=== PATIENT | female | born 1995 | race Caucasian/White ===

== ENCOUNTER 2022-09-16 14:43 | Outpatient (REF) | payer OTHER, SELFPAY ==
--- NOTE | ~2022-09-16 | US_ITS ---
EXAMINATION: US SOFT TISSUE HEAD/NECK CLINICAL INFORMATION: Lymphadenopathy. Patient states history of enlarged right zone II lymph node. COMPARISON: None available. TECHNIQUE: Linear transducer grayscale and color Doppler examination of the right neck with left neck for comparison. FINDINGS: Targeted ultrasound images were obtained by the doughnut icer of the area of concern as indicated by the patient in the right neck at level 2. Radiologist was not in attendance. Images were later provided for interpretation. Right level 2 lymph atypical node measures 1.1 cm transverse, 0.7 cm AP, 0.9 cm sagittal with an echogenic hilum. Right level 2 atypical node measures 1.5 cm transverse, 0.8 cm AP and 1.7 cm sagittal with cortical thickening and echogenic hilum. Right level 3 node measures 0.8 cm transverse, 0.5 cm AP, 1.9 cm sagittal and demonstrates an echogenic hilum. Left level 2 atypical node measures 1.5 cm transverse, 0.7 cm AP, 1.6 cm transverse with minimally visualized echogenic hilum. US/US soft tiss head and/or neck IMPRESSION: Multiple lymph nodes, some of which are atypical, as detailed above. Decisions regarding further imaging, treatment or biopsy should be based on the clinical exam. Recommend follow up ultrasound in 3 months.
== END 2022-09-16 14:44 | disposition home or self-care (01) ==
LOC: HO.US 14:43
PROVIDERS: Visit Provider Internal Medicine
DX: R59.0 Localized enlarged lymph nodes (principal)
CPT/HCPCS: 76536

== ENCOUNTER 2022-12-08 13:19 | Outpatient (REF) | payer OTHER, SELFPAY ==
--- NOTE | ~2022-12-08 | US_ITS ---
Ultrasound guided biopsy of the enlarged lymph node in the right side of the neck at level II measuring 1.8 x 0.9 x 1.4 cm INDICATIONS: Cervical lymphadenopathy After informed and written consent was obtained an official timeout was performed immediately prior to the procedure. PROCEDURE: The skin was prepped and draped in the usual fashion. 1% Xylocaine was used for local anesthetic. Under ultrasound guidance 4 needle aspirates were obtained utilizing a 25-gauge needle. One specimen was sent in flow cytometry. US/US guided fine needle asp IMPRESSION: Ultrasound-guided biopsy of the enlarged lymph node in the right side of the neck
[2022-12-08] MEDS: Lidocaine HCl 1 % MPF 5 ML VIAL SUBCUT (14:11)
== END 2022-12-08 13:20 | disposition home or self-care (01) ==
LOC: HO.US 13:19
PROVIDERS: Radiology Vascular & Interventional Radiology; Visit Provider Internal Medicine
DX: L04.0 Acute lymphadenitis of face, head and neck (principal)
CPT/HCPCS: 10005; 36415; 88172; 88173; 88177; 88184; 88185

== ENCOUNTER → 2022-12-08 13:24 | Outpatient (BNV) | payer OTHER, SELFPAY | PROVIDERS: Visit Provider Radiology Vascular & Interventional Radiology | DX: E04.1 Nontoxic single thyroid nodule (principal) | CPT/HCPCS: 10005 ==

== ENCOUNTER 2023-06-10 09:48 | Outpatient (REF) | payer OTHER, SELFPAY ==
--- NOTE | ~2023-06-10 | US_ITS ---
EXAMINATION: US PELVIS CLINICAL INFORMATION: Right ovarian cyst. Previous imaging January 2023 in [place]. Prior images are not available at this time for comparison. Last menstrual period June 01, 2023. COMPARISON: None available. TECHNIQUE: Ultrasound of the pelvis is performed using both transabdominal and transvaginal transducers along with Doppler. Transvaginal imaging is performed due to inadequate visualization transabdominally. FINDINGS: The uterus is anteverted and measures 7.6 x 2.3 x 3.3 cm. No discrete fibroids are appreciated. Endometrial thickness is 4 mm. Right ovary measures 3.2 x 1.7 x 1.6 cm, volume 4.6 mL. Severely limited visualization of the right ovary due to bowel gas. Echogenic foci within the right ovary may represent calcifications. Left ovary measures 2.9 x 1.6 x 1.8 cm, volume 4.4 mL. Left ovarian 1.2 x 1.3 x 1.2 cm cyst is likely physiologic. There is no specific indication for additional imaging at this time. US/US pelvic and transvaginal IMPRESSION: Severely limited visualization of the right ovary due to bowel gas. Echogenic foci within the right ovary may represent calcifications. Left ovarian 1.2 x 1.3 x 1.2 cm cyst is likely physiologic. There is no specific indication for additional imaging at this time. Endometrial thickness is 4 mm.
== END 2023-06-10 09:49 | disposition home or self-care (01) ==
LOC: HO.US 09:48
PROVIDERS: Visit Provider Registered Nurse
DX: N83.201 Unspecified ovarian cyst, right side (principal)
CPT/HCPCS: 76830; 76856